=== PATIENT | female | born 1940 | race Caucasian/White ===

== ENCOUNTER 2024-05-02 12:17 | Emergency (ER) | payer MEDICARE ==
[~2024-05-02] VITALS: Ht 165.1 cm; Wt 80.5 kg
[~2024-05-02 12:17] MED LIST: ALDACTONE 25MG25 M1 PO; ALLOPURINOL300 MG PO; AMOXICILLIN 8751 TAB PO; APRESOLINE 10MG10 MG PO; ARIMIDEX1 MG PO; ASPIRIN 81M81 MG/TA2 PO; B COMPLEX #11 TA1 PO; B-121000 MCG PO; BISOPROLOL FUMA10 MG PO; CALCIUM CITRAT200 M2; CALCIUM CITRATE1 TA6 PO; CATAPRES 0.1MG0.1 MG PO; CHLOROPHYLL 3 M1 TAB PO; CITRACAL + D CA1 TAB; CLEOCIN HCL300 MG PO; CORDARONE200 MG/TAB PO; COZAAR 25MG25 MG/TAB PO; COZAAR100 MG PO; DIGESTIVE PROB1 EACH PO; DOXYCYCLINE 10100 MG PO; ELIQUIS 5MG PO; EPA FISH OIL1 SGL PO; EXELON3 MG PO; GENTLE LAXATIVE10 MG RC; HAWTHORN BERRIE1 CAP PO; HCTZ 25MG TAB25 MG PO; HYDRALAZINE HC100 MG PO; HYZAAR 25 MG-101 TAB PO; IMODIUM 2MG CAPS2 MG PO; KLOR-CON20 MEQ PO; LIDOCAINE PATCH 4%; LIORESAL 1010 MG/TAB PO; LYRICA 75MG CAP75 MG PO; MACROBID 1100 MG/CAP PO; MAGNESIUM200 MG PO; MAGNESIUM500 MG PO; MILK OF MA400 MG/52; MIRALAX PA17 GM/Dose PO; MIRALAX238G PO; MYLANTA 150 ML150 M1 PO; NATURAL ODORLE400 MG PO; NEURONTIN300 MG/CAP PO; NORVASC 10MG10 MG PO; NORVASC 5MG5 MG/TAB PO; NORVASC2.5 MG PO; OMEGA-31000 MG PO; PAMELOR 10MG10 MG PO; PHARMASSURE ZIN50 MG PO; PLAVIX 75MG TAB75 MG PO; POTASSIUM20 MEQ PO; PRESERVISION A1 EAC3 PO; PRESERVISION1 SGL PO; ROBAXIN 75750 MG/TAB PO; SENNA-S 50 MG-81 TAB PO; SENOKOT S 50 MG1 TAB PO; SUPER CALCIUM W1 TA2 PO; TEKTURNA150 MG PO; TURMERIC CURCUMIN; TURMERIC500 MG PO; TYLENOL 8 HR PO; TYLENOL SU650 MG/SUP RC; VITAMIN A; VITAMIN D1000 IU PO; VITAMIN K PO; VITAMIND3 5000 PO; XARELTO20 MG PO; ZEBETA 5MG5 MG PO; ZINC50 M1 PO; ZYLOPRIM 100MG100 MG PO
[2024-05-02 12:19] VITALS: TEMP 98.5
[2024-05-02] MEDS ORDERED: NORCO 325 MG-51 TAB PO (13:38)
[2024-05-02 13:56] VITALS: BP 158/69; PULSE 57
== END 2024-05-02 13:56 | disposition home or self-care (01) ==
LOC: COL.ER 12:17
DX: S09.90XA Unspecified injury of head, initial encounter (principal); S42.301A Unspecified fracture of shaft of humerus, right arm, initial encounter for closed fracture; Z79.01 Long term (current) use of anticoagulants; W05.0XXA Fall from non-moving wheelchair, initial encounter

== ENCOUNTER → 2024-05-23 | Outpatient (REF) | payer MEDICARE ==
[~2024-05-23] MED LIST changes: +NORCO 325 MG-51 TAB PO
[2024-05-23 10:36] LABS: PH 6.5 (5.0-8.5); URINE APPEARANCE CLEAR (CLEAR/HAZY); URINE BLOOD NEGATIVE (NEGATIVE); URINE COLOR YELLOW (YELLOW); URINE GLUCOSE NEGATIVE (NEGATIVE); URINE KETONE NEGATIVE (NEGATIVE); URINE NITRATE NEGATIVE (NEGATIVE); URINE PROTEIN(semi-quant) NEGATIVE (NEGATIVE); URINE UROBILINOGEN 0.2 E.U/dL (0.2-1.0)
[2024-05-24 11:04] LABS: COLLECTION METHOD CLEAN CATCH
== END ==
LOC: ZCOL.LAB 09:19
PROVIDERS: Family Medicine
DX: R42 Dizziness and giddiness (principal); R53.83 Other fatigue; R82.998 Other abnormal findings in urine